=== PATIENT | male | born 1965 | race Caucasian/White ===

== ENCOUNTER 2019-02-07 17:32 | Inpatient (IN) ==
[2019-02-07] MEDS ORDERED: LABETALOL 20 MG/4 ML SYRINGE IV STA (18:24)
[2019-02-07 18:32] LABS: Basophils # 0.1 10*3/uL (0.0-0.2); Basophils % 0.9 % (0.0-0.8); Eosinophils % 0.2 % (0.00-10.9); Hematocrit 50.8 VOL% (42.0-52.0); Hemoglobin 16.7 GM/DL (14.0-18.0); Immature Granulocytes % 1.2 %; Immature Granulocytes Absolute 0.11 #; Lymphocytes # 0.9 10*3/uL (1.4-4.0); Lymphocytes % 10.2 % (21.2-54.2); Mean Corpuscular HGB Conc 32.9 GM/DL (32-36); Mean Corpuscular Volume 86.5 FL (87-102); Mean Platelet Volume 10.7 FL (9.6-12.0); Monocytes % 2.6 % (1.7-12.7); Neutrophils % 84.9 % (38.7-73.9); Platelet Count 190 T/CUMM (130-400); Red Blood Count 5.87 MC/CUMM (3.8-5.5); Red Cell Distribution Width 13.3 % (9.3-17.3); White Blood Count 9.2 T/CUMM (4-12)
[2019-02-07 18:41] LABS: INR 0.9; PT Patient Result 10.3 SECS (9.6-12.2)
[2019-02-07 18:43] LABS: Albumin 3.7 G/DL (3.4-5.0); Bilirubin,Total 1.1 MG/DL (0.2-1.0); Calcium 9.3 MG/DL (8.5-10.1); Osmolality,Calculated 294.4 MOS/KG (273-304); Total Protein 7.8 G/DL (6.4-8.3)
[2019-02-07] MEDS ORDERED: NITROGLYCERIN SL 0.4 MG TABLET SL STA (19:19)
[2019-02-07] MEDS ORDERED: ASPIRIN EC 325 MG TABLET PO STA (19:19)
[2019-02-07] MEDS ORDERED: CLOPIDOGREL 300 MG TABLET PO STA (20:46)
[2019-02-07] MEDS ORDERED: NITROGLYCERIN 2% OINT 1 INCH/GM PACK TOP ONE (20:58)
[2019-02-07] MEDS ORDERED: ENOXAPARIN 120 MG/0.8 ML SYRINGE SUBCUT ONE (20:59)
[2019-02-07] MEDS ORDERED: ENOXAPARIN 80 MG/0.8 ML SYRINGE SUBCUT SCH (21:00)
[2019-02-07] MEDS ORDERED: hydrALAZINE 20 MG/1 ML VIAL IV PRN (23:03)
[2019-02-07] MEDS ORDERED: DOCUSATE SODIUM 100 MG CAPSULE PO PRN (23:03)
[2019-02-07] MEDS ORDERED: GLUCAGON 1 MG VIAL IM PRN (23:03)
[2019-02-07] MEDS ORDERED: MORPHINE 4 MG/1 ML VIAL IV PRN (23:03)
[2019-02-07] MEDS ORDERED: ACETAMINOPHEN 325 MG TABLET PO PRN (23:03)
[2019-02-07] MEDS ORDERED: DEXTROSE 50% 25 GM/50 ML VIAL IV PRN (23:03)
[2019-02-07] MEDS ORDERED: ONDANSETRON 4 MG/2 ML VIAL IV PRN (23:03)
[2019-02-07] MEDS: INSULIN REGULAR 100 UNIT/ML SUBCUT SCH (23:53)
[2019-02-08 01:07] LABS: Basophils % 0.4 % (0.0-0.8); Eosinophils % 0.1 % (0.00-10.9); Hematocrit 45.1 VOL% (42.0-52.0); Hemoglobin 14.9 GM/DL (14.0-18.0); Immature Granulocytes % 1.5 %; Immature Granulocytes Absolute 0.15 #; Lymphocytes # 1.4 10*3/uL (1.4-4.0); Lymphocytes % 13.5 % (21.2-54.2); Mean Corpuscular Volume 86.6 FL (87-102); Monocytes % 5.8 % (1.7-12.7); Neutrophils % 78.7 % (38.7-73.9); Platelet Count 177 T/CUMM (130-400); Red Blood Count 5.21 MC/CUMM (3.8-5.5); Red Cell Distribution Width 13.2 % (9.3-17.3)
[2019-02-08 01:29] LABS: Calcium 9.5 MG/DL (8.5-10.1); Osmolality,Calculated 289.4 MOS/KG (273-304); Risk Ratio 6.5; Thyroid Stimulating Hormone 0.421 uIU/ml (0.358-3.74); VLDL CHOLESTEROL 38.6 MG/DL
[2019-02-08] MEDS ORDERED: CLOPIDOGREL 75 MG TABLET PO SCH (09:00)
[2019-02-08] MEDS: INSULIN REGULAR 100 UNIT/ML SUBCUT SCH ×4 (09:14→21:48)
[2019-02-08] MEDS ORDERED: LIDOCAINE 1% 20 ML VIAL ONE (09:39)
[2019-02-08] MEDS ORDERED: HEPARIN/NACL 0.9% 2 UNITS/ML 1,000 ML IV ONE (09:39)
[2019-02-08] MEDS: METOPROLOL SUCCINATE XL 50 MG TABLET PO SCH (09:44)
[2019-02-08] MEDS: ENOXAPARIN 150 MG/ML SYRINGE SUBCUT SCH ×2 (09:44→21:47)
[2019-02-08] MEDS: PANTOPRAZOLE 40 MG TABLET PO SCH (09:44)
[2019-02-08] MEDS: LISINOPRIL 10 MG TABLET PO SCH (09:45)
[2019-02-08] MEDS: ASPIRIN EC 81 MG TABLET PO SCH (09:45)
[2019-02-08] MEDS ORDERED: diphenhydrAMINE CAP 25 MG CAPSULE PO ONE (09:46)
[2019-02-08] MEDS ORDERED: MAGNESIUM SULF RIDER 2 GM in PREMIX 1 EACH IV PRN (09:46)
[2019-02-08] MEDS ORDERED: ASPIRIN 325 MG TABLET PO ONE (09:46)
[2019-02-08] MEDS ORDERED: DIAZEPAM 5 MG TABLET PO ONE (09:46)
[2019-02-08] MEDS ORDERED: POTASSIUM CHLORIDE RIDER 10 MEQ in PREMIX 1 EACH IV PRN (09:46)
[2019-02-08 09:48] LABS: CKMB % 8.6 %
[2019-02-08] MEDS ORDERED: DIAZEPAM 5 MG TABLET ONE (09:49)
[2019-02-08] MEDS ORDERED: diphenhydrAMINE CAP 25 MG CAPSULE ONE (09:50)
[2019-02-08 09:51] LABS: Troponin I 19.5 NG/ML (0.00-0.045)
[2019-02-08] MEDS: NITROGLYCERIN 0.2 MG/HR PATCH TRANSDERM SCH (09:55)
[2019-02-08] MEDS: ATORVASTATIN 80 MG TABLET PO SCH ×2 (09:58→21:48)
[2019-02-08] MEDS: SODIUM CHLORIDE 0.45% 1,000 ML IV SCH ×3 (10:01→21:49)
[2019-02-08] MEDS ORDERED: NITROGLYCERIN DRIP 50 MG/250 ML BOTTLE IV ONE (10:21)
[2019-02-08] MEDS ORDERED: VERAPAMIL 5 MG/2 ML VIAL ONE ×2 (10:21→10:23)
[2019-02-08] MEDS ORDERED: HYDROmorphone 2 MG/1 ML VIAL ONE (10:21)
[2019-02-08] MEDS ORDERED: MIDAZOLAM 2 MG/2 ML VIAL ONE (10:21)
[2019-02-08] MEDS ORDERED: SODIUM CHLORIDE 0.9% 1,000 ML IV SCH (11:00)
[2019-02-09] MEDS: SODIUM CHLORIDE 0.45% 1,000 ML IV SCH (01:47)
[2019-02-09 04:50] LABS: Basophils # 0.1 10*3/uL (0.0-0.2); Eosinophils # 0.2 10*3/uL (0.0-0.87); Eosinophils % 2.2 % (0.00-10.9); Hematocrit 46.4 VOL% (42.0-52.0); Hemoglobin 14.9 GM/DL (14.0-18.0); Immature Granulocytes % 0.8 %; Immature Granulocytes Absolute 0.08 #; Lymphocytes # 2.7 10*3/uL (1.4-4.0); Lymphocytes % 27.1 % (21.2-54.2); Mean Corpuscular HGB Conc 32.1 GM/DL (32-36); Mean Platelet Volume 11.9 FL (9.6-12.0); Monocytes % 7.4 % (1.7-12.7); Neutrophils % 61.5 % (38.7-73.9); Platelet Count 150 T/CUMM (130-400); Red Blood Count 5.27 MC/CUMM (3.8-5.5); Red Cell Distribution Width 13.6 % (9.3-17.3)
[2019-02-09 05:01] LABS: Calcium 8.1 MG/DL (8.5-10.1); Osmolality,Calculated 285.3 MOS/KG (273-304)
[2019-02-09] MEDS: INSULIN REGULAR 100 UNIT/ML SUBCUT SCH ×4 (07:49→22:28)
[2019-02-09] MEDS: LISINOPRIL 10 MG TABLET PO SCH (08:27)
[2019-02-09] MEDS: METOPROLOL SUCCINATE XL 50 MG TABLET PO SCH (08:28)
[2019-02-09] MEDS: ASPIRIN EC 81 MG TABLET PO SCH (08:28)
[2019-02-09] MEDS: NITROGLYCERIN 0.2 MG/HR PATCH TRANSDERM SCH (08:29)
[2019-02-09] MEDS: ENOXAPARIN 150 MG/ML SYRINGE SUBCUT SCH ×4 (08:31→22:29)
[2019-02-09] MEDS: PANTOPRAZOLE 40 MG TABLET PO SCH (08:54)
[2019-02-09 10:45] LABS: Apearance,Urine CLEAR (Clear); Bilirubin,Urine Negative (Negative); Blood, Urine Negative (Negative); Glucose,Urine (UA) >=500 mg/dL (Negative); Ketones,Urine Negative (Negative); Nitrite,Urine Negative (Negative); Protein,Urine Negative; RBC,Urine 1 /HPF (0-4); Squamous Epithelial Cell,Urine Occasional /HPF (0-10); Urine Color Straw (Yellow); Urine Specific Gravity 1.007 (1.001-1.035); Urine Urobilinogen < 2.0 EU/DL (0.2-1.0); WBC,Urine 1 /HPF (0-6)
[2019-02-09] MEDS ORDERED: KETOROLAC 30 MG/1 ML VIAL IV ONE (12:47)
[2019-02-09] MEDS: ATORVASTATIN 80 MG TABLET PO SCH (20:31)
[2019-02-10 05:11] LABS: Calcium 8.4 MG/DL (8.5-10.1); Osmolality,Calculated 286.1 MOS/KG (273-304)
[2019-02-10] MEDS: metFORMIN 500 MG TABLET PO SCH ×3 (08:00→16:20)
[2019-02-10] MEDS: INSULIN REGULAR 100 UNIT/ML SUBCUT SCH ×4 (08:06→21:38)
[2019-02-10] MEDS: ENOXAPARIN 150 MG/ML SYRINGE SUBCUT SCH ×2 (09:23→21:38)
[2019-02-10] MEDS: ASPIRIN EC 81 MG TABLET PO SCH (09:24)
[2019-02-10] MEDS: PANTOPRAZOLE 40 MG TABLET PO SCH (09:24)
[2019-02-10] MEDS: NITROGLYCERIN 0.2 MG/HR PATCH TRANSDERM SCH (09:24)
[2019-02-10] MEDS: METOPROLOL SUCCINATE XL 50 MG TABLET PO SCH (09:24)
[2019-02-10] MEDS: LISINOPRIL 10 MG TABLET PO SCH (09:24)
[2019-02-10] MEDS: ATORVASTATIN 80 MG TABLET PO SCH (21:38)
[2019-02-11] MEDS: INSULIN REGULAR 100 UNIT/ML SUBCUT SCH ×4 (08:39→20:42)
[2019-02-11] MEDS ORDERED: CLORAZEPATE 3.75 MG TABLET PO PRN (08:46)
[2019-02-11] MEDS: ENOXAPARIN 150 MG/ML SYRINGE SUBCUT SCH (09:12)
[2019-02-11] MEDS: CHLORHEXIDINE 0.12% ORAL RINSE 60 ML BOTTLE SWISH/SPIT SCH ×2 (09:13→20:40)
[2019-02-11] MEDS: NITROGLYCERIN 0.2 MG/HR PATCH TRANSDERM SCH (09:14)
[2019-02-11] MEDS: METOPROLOL SUCCINATE XL 50 MG TABLET PO SCH (09:17)
[2019-02-11] MEDS: PANTOPRAZOLE 40 MG TABLET PO SCH (09:17)
[2019-02-11] MEDS: LISINOPRIL 20 MG TABLET PO SCH (09:17)
[2019-02-11] MEDS: metFORMIN 500 MG TABLET PO SCH ×2 (09:17→16:53)
[2019-02-11] MEDS: ASPIRIN EC 81 MG TABLET PO SCH (09:17)
[2019-02-11] MEDS: CHLORHEXIDINE 4% SOLN 118 ML BOTTLE TOP SCH ×3 (09:31→20:41)
[2019-02-11] MEDS: ASCORBIC ACID 500 MG TABLET PO SCH (20:40)
[2019-02-11] MEDS: carvediloL 12.5 MG TABLET PO SCH (20:40)
[2019-02-11] MEDS: ATORVASTATIN 80 MG TABLET PO SCH (20:40)
[2019-02-12 04:20] LABS: Basophils # 0.1 10*3/uL (0.0-0.2); Basophils % 0.7 % (0.0-0.8); Eosinophils # 0.1 10*3/uL (0.0-0.87); Eosinophils % 1.5 % (0.00-10.9); Hematocrit 44.6 VOL% (42.0-52.0); Hemoglobin 14.5 GM/DL (14.0-18.0); Immature Granulocytes % 0.8 %; Immature Granulocytes Absolute 0.08 #; Lymphocytes # 1.8 10*3/uL (1.4-4.0); Lymphocytes % 18.2 % (21.2-54.2); Mean Corpuscular HGB Conc 32.5 GM/DL (32-36); Mean Corpuscular Volume 86.1 FL (87-102); Mean Platelet Volume 11.5 FL (9.6-12.0); Monocytes % 9.4 % (1.7-12.7); Neutrophils % 69.4 % (38.7-73.9); Platelet Count 164 T/CUMM (130-400); Red Blood Count 5.18 MC/CUMM (3.8-5.5); Red Cell Distribution Width 13.4 % (9.3-17.3); White Blood Count 9.7 T/CUMM (4-12)
[2019-02-12] MEDS ORDERED: VANCOMYCIN 1,000 MG VIAL ONE (05:10)
[2019-02-12] MEDS ORDERED: TISSUE ADHESIVE 1 EACH APPLICATOR TOP ONE (05:10)
[2019-02-12] MEDS ORDERED: PAPAVERINE 60 MG/2 ML VIAL ONE (05:10)
[2019-02-12 05:17] LABS: Osmolality,Calculated 279.5 MOS/KG (273-304)
[2019-02-12] MEDS: SODIUM CHLORIDE 0.9% 1,000 ML IV SCH ×2 (05:33→11:00)
[2019-02-12] MEDS ORDERED: DEXMEDETOMIDINE 200 MCG/2 ML VIAL IV ONE (06:20)
[2019-02-12] MEDS ORDERED: FAMOTIDINE 20 MG/2 ML VIAL IV ONE (06:21)
[2019-02-12] MEDS ORDERED: PHENYLEPHRINE DRIP 40 MG/250 ML PREMIX IV ONE (07:46)
[2019-02-12] MEDS ORDERED: NITROPRUSSIDE 50 MG/2 ML VIAL ONE ×2 (07:46→10:29)
[2019-02-12] MEDS ORDERED: CEFUROXIME 1,500 MG VIAL ONE (07:46)
[2019-02-12] MEDS ORDERED: SODIUM BICARBONATE 50 MEQ/50 ML VIAL IV ONE ×2 (07:47→10:32)
[2019-02-12] MEDS ORDERED: CALCIUM CHLORIDE 1,000 MG/10 ML SYRINGE IV ONE (07:47)
[2019-02-12] MEDS ORDERED: POTASSIUM CHLORIDE RIDER 100 ML IV ONE (07:47)
[2019-02-12] MEDS ORDERED: ALBUMIN 5% 12.5 GM/250 ML VIAL IV ONE ×2 (07:48→11:49)
[2019-02-12 07:58] LABS: ABG Base Excess -2.9 MMOL/L (-2.5-2.5); ABG Oxygen Saturation 99.3 % (95-100); ABG PCO2 32.5 MM HG (35-48); ABG PH 7.412 (7.35-7.45); ABG TCO2 17.7 MMOL/L (23-27); Glucose Heart Surgery 147 MG/DL (74-106); Hematocrit Heart Surgery 43.9 PERCENT (42-52); Hemoglobin Heart Surgery 14.3 G/DL (14.0-18.0); Ionized Calcium Arterial 1.11 MMOL/L (1.21-1.46); PCO2 Patient Temp Arterial 32.5 MMHG; PH Patient Temp Arterial 7.412; Patient Temperature 37 CELCIUS; Potassium Heart/CVR 3.6 MMOL/L (3.5-5.1); Sodium Heart/CVR 136 MMOL/L (135-145)
[2019-02-12] MEDS ORDERED: CEFUROXIME INJ 1,500 MG in SYRINGE 1 EACH IV ONE (08:02)
[2019-02-12 08:08] LABS: Apearance,Urine CLEAR (Clear); Bilirubin,Urine Negative (Negative); Blood, Urine Moderate mg/dL (Negative); Glucose,Urine (UA) >=500 mg/dL (Negative); Ketones,Urine 20 mg/dL (Negative); Mucus,Urine Occasional /LPF (Occasional); Nitrite,Urine Negative (Negative); Protein,Urine Negative; RBC,Urine 59 /HPF (0-4); Urine Color Yellow (Yellow); Urine Specific Gravity 1.024 (1.001-1.035); Urine Urobilinogen < 2.0 EU/DL (0.2-1.0); WBC,Urine 1 /HPF (0-6)
[2019-02-12] MEDS ORDERED: VANCOMYCIN 500 MG VIAL ONE (08:16)
[2019-02-12 09:12] LABS: Hemoglobin Heart Surgery 11.3 G/DL (14.0-18.0); PCO2 Patient Temp Venous 34.1 MM HG; PH Patient Temp Venous 7.412; Potassium Heart/CVR 4.6 MMOL/L (3.5-5.1); VBG Base Excess -2.9 MEQ/L (0-4); VBG HCO3 21.4 MEQ/L (24-28); VBG Oxygen Saturation 80.3 %; VBG PCO2 35.6 MMHG (41-51); VBG PH 7.397
[2019-02-12 09:37] LABS: Hematocrit Heart Surgery 34.8 PERCENT (42-52); Hemoglobin Heart Surgery 11.3 G/DL (14.0-18.0); PCO2 Patient Temp Venous 37.3 MM HG; PH Patient Temp Venous 7.371; PO2 Patient Temp Venous 45.2 MM HG; Potassium Heart/CVR 4.1 MMOL/L (3.5-5.1); VBG Base Excess -3.2 MEQ/L (0-4); VBG HCO3 21.5 MEQ/L (24-28); VBG Oxygen Saturation 80.6 %; VBG PCO2 37.3 MMHG (41-51); VBG PH 7.371; VBG PO2 45.2 MMHG (17-40)
[2019-02-12] MEDS ORDERED: THROMBIN TOPICAL (RECOMBINANT) 5,000 UNIT VIAL TOP ONE (10:19)
[2019-02-12] MEDS ORDERED: MANNITOL 100 GM/500 ML BAG IV ONE (10:32)
[2019-02-12] MEDS ORDERED: ALBUMIN 25% 25 GM/100 ML VIAL IV ONE (10:32)
[2019-02-12] MEDS ORDERED: DEXTROSE 5% KCL 20 MEQ 20 MEQ/1,000 ML BAG IV ONE (10:32)
[2019-02-12] MEDS ORDERED: PROTAMINE SULFATE 250 MG/25 ML VIAL IV ONE (10:32)
[2019-02-12] MEDS ORDERED: MAGNESIUM SULFATE 5 GM/10 ML VIAL IV ONE (10:32)
[2019-02-12] MEDS ORDERED: LIDOCAINE 2% 5 ML VIAL ONE ×2 (10:32→11:47)
[2019-02-12] MEDS ORDERED: FUROSEMIDE 20 MG/2 ML VIAL ONE (10:33)
[2019-02-12] MEDS ORDERED: methylPREDNISolone SOD SUC 1,000 MG/8 ML VIAL ONE (10:33)
[2019-02-12] MEDS ORDERED: PROTAMINE SULFATE 50 MG/5 ML VIAL IV ONE (10:33)
[2019-02-12] MEDS ORDERED: HEPARIN 10,000 UNIT/10 ML VIAL ONE (10:33)
[2019-02-12 10:41] LABS: ABG Base Excess -3.6 MMOL/L (-2.5-2.5); ABG HCO3 20.1 MMOL/L (20-26); ABG PCO2 32.4 MM HG (35-48); ABG PH 7.411 (7.35-7.45); ABG PO2 249.8 MM HG (80-95); ABG TCO2 21.1 MMOL/L (23-27); Glucose Heart Surgery 222 MG/DL (74-106); Hemoglobin Heart Surgery 12.5 G/DL (14.0-18.0); PCO2 Patient Temp Arterial 32.4 MMHG; PH Patient Temp Arterial 7.411; PO2 Patient Temp Arterial 249.8 MM HG; Patient Temperature 37 CELCIUS; Potassium Heart/CVR 4.3 MMOL/L (3.5-5.1); Sodium Heart/CVR 130 MMOL/L (135-145)
[2019-02-12] MEDS: NITROGLYCERIN 0.2 MG/HR PATCH TRANSDERM SCH (11:00)
[2019-02-12] MEDS: ASPIRIN EC 81 MG TABLET PO SCH (11:00)
[2019-02-12] MEDS: metFORMIN 500 MG TABLET PO SCH (11:00)
[2019-02-12] MEDS: carvediloL 12.5 MG TABLET PO SCH (11:00)
[2019-02-12] MEDS: CHLORHEXIDINE 0.12% ORAL RINSE 60 ML BOTTLE SWISH/SPIT SCH ×2 (11:00→20:02)
[2019-02-12] MEDS: LISINOPRIL 20 MG TABLET PO SCH (11:00)
[2019-02-12] MEDS: INSULIN REGULAR 100 UNIT/ML SUBCUT SCH ×2 (11:00→13:26)
[2019-02-12] MEDS: ASCORBIC ACID 500 MG TABLET PO SCH (11:01)
[2019-02-12] MEDS: PANTOPRAZOLE 40 MG TABLET PO SCH (11:01)
[2019-02-12] MEDS: ALBUTEROL/IPRATROPIUM 3 ML NEB RESP TX SCH ×4 (11:40→22:59)
[2019-02-12] MEDS ORDERED: ePHEDrine 50 MG/ML AMP ONE (11:45)
[2019-02-12] MEDS ORDERED: SUFentanil 250 MCG/5 ML AMP ONE (11:47)
[2019-02-12] MEDS ORDERED: SEVOFLURANE 1 UNIT/15 MINUTE INH ONE (11:47)
[2019-02-12] MEDS ORDERED: CALCIUM CHLORIDE 1,000 MG/10 ML VIAL IV ONE (11:47)
[2019-02-12] MEDS ORDERED: HEPARIN/NACL 0.9% 2 UNITS/ML 500 ML IV ONE (11:47)
[2019-02-12] MEDS ORDERED: PHENYLEPHRINE 10 MG/1 ML VIAL IV ONE (11:48)
[2019-02-12] MEDS ORDERED: METOPROLOL TARTRATE 5 MG/5 ML VIAL IV ONE (11:48)
[2019-02-12] MEDS ORDERED: MIDAZOLAM 10 MG/2 ML VIAL ONE (11:48)
[2019-02-12] MEDS ORDERED: NITROGLYCERIN DRIP 50 MG/250 ML BOTTLE IV ONE (11:48)
[2019-02-12] MEDS ORDERED: ETOMIDATE 40 MG/20 ML VIAL IV ONE (11:48)
[2019-02-12] MEDS ORDERED: VECURONIUM 10 MG VIAL IV ONE (11:48)
[2019-02-12] MEDS ORDERED: SODIUM CHLORIDE 0.9% 1,000 ML IV ONE (11:49)
[2019-02-12] MEDS ORDERED: AMINOCAPROIC ACID 5,000 MG/20 ML VIAL ONE (11:49)
[2019-02-12] MEDS ORDERED: SODIUM CHLORIDE 0.9% 250 ML IV ONE (11:49)
[2019-02-12] MEDS ORDERED: LACTATED RINGERS 1,000 ML IV ONE (11:49)
[2019-02-12] MEDS ORDERED: ACETAMINOPHEN 650 MG SUPP RECTAL PRN (12:07)
[2019-02-12] MEDS ORDERED: MAGNESIUM SULF RIDER 2 GM in PREMIX 1 EACH IV PRN (12:07)
[2019-02-12] MEDS ORDERED: CALCIUM CHLORIDE 1,000 MG/10 ML SYRINGE IV PRN (12:07)
[2019-02-12] MEDS ORDERED: MIDAZOLAM 2 MG/2 ML VIAL IV PRN (12:07)
[2019-02-12] MEDS ORDERED: DEXTROSE 10% 250 ML BAG IV PRN ×2 (12:07)
[2019-02-12] MEDS ORDERED: INSULIN REGULAR 100 UNIT/ML IV PRN (12:07)
[2019-02-12] MEDS ORDERED: ONDANSETRON 4 MG/2 ML VIAL IV PRN (12:07)
[2019-02-12] MEDS ORDERED: CHLORHEXIDINE 4% SOLN 118 ML BOTTLE TOP PRN (12:07)
[2019-02-12 12:12] LABS: ABG Base Excess -3.5 MMOL/L (-2.5-2.5); ABG HCO3 19.9 MMOL/L (20-26); ABG Oxygen Saturation 95.2 % (95-100); ABG PCO2 30.5 MM HG (35-48); ABG PH 7.432 (7.35-7.45); ABG PO2 76.1 MM HG (80-95); ABG TCO2 20.8 MMOL/L (23-27); Glucose Heart Surgery 211 MG/DL (74-106); Hemoglobin Heart Surgery 11.5 G/DL (14.0-18.0); Potassium Heart/CVR 3.8 MMOL/L (3.5-5.1)
[2019-02-12 12:15] LABS: Basophils % 0.4 % (0.0-0.8); Eosinophils # 0.1 10*3/uL (0.0-0.87); Eosinophils % 0.5 % (0.00-10.9); Hematocrit 32.3 VOL% (42.0-52.0); Hemoglobin 10.8 GM/DL (14.0-18.0); Immature Granulocytes % 1.1 %; Immature Granulocytes Absolute 0.12 #; Lymphocytes # 0.9 10*3/uL (1.4-4.0); Lymphocytes % 8.5 % (21.2-54.2); Mean Corpuscular HGB Conc 33.4 GM/DL (32-36); Mean Corpuscular Volume 86.6 FL (87-102); Mean Platelet Volume 11.4 FL (9.6-12.0); Monocytes % 5.6 % (1.7-12.7); Neutrophils % 83.9 % (38.7-73.9); Platelet Count 133 T/CUMM (130-400); Red Blood Count 3.73 MC/CUMM (3.8-5.5); Red Cell Distribution Width 13.4 % (9.3-17.3); White Blood Count 10.7 T/CUMM (4-12)
[2019-02-12 12:26] LABS: INR 1.1; PT Patient Result 11.4 SECS (9.6-12.2); Partial Thromboplastin Time 29.2 SECS (20.8-36.0)
[2019-02-12 12:29] LABS: Calcium 8.2 MG/DL (8.5-10.1); Osmolality,Calculated 283.5 MOS/KG (273-304)
[2019-02-12] MEDS: ALBUMIN 5% 12.5 GM in PREMIX 1 EACH IV PRN ×2 (12:34→15:30)
[2019-02-12] MEDS: SODIUM CHLORIDE 0.45% 1,000 ML IV SCH ×2 (12:34)
[2019-02-12] MEDS: POTASSIUM CHLORIDE RIDER 20 MEQ in PREMIX 1 EACH IV PRN ×2 (12:37→14:08)
[2019-02-12] MEDS: INSULIN REGULAR DRIP 100 ML IV SCH (12:45)
[2019-02-12] MEDS: POTASSIUM CHLORIDE RIDER 10 MEQ in PREMIX 1 EACH IV PRN (14:09)
[2019-02-12] MEDS: SODIUM CHLORIDE 0.9% 250 ML IV PRN ×4 (14:15→19:33)
[2019-02-12] MEDS ORDERED: PHENYLEPHRINE DRIP 40 MG/250 ML PREMIX IV PRN (14:36)
[2019-02-12] MEDS ORDERED: NITROPRUSSIDE 100 MG in DEXTROSE 5% 246 ML IV PRN (14:37)
[2019-02-12] MEDS: DEXMEDETOMIDINE 200 MCG in SODIUM CHLORIDE 0.9% 48 ML IV PRN ×3 (15:00→21:53)
[2019-02-12] MEDS: MORPHINE 10 MG/1 ML VIAL IV PRN ×2 (17:13→19:08)
[2019-02-12] MEDS: CEFUROXIME INJ 1,500 MG in SYRINGE 1 EACH IV SCH (19:08)
[2019-02-13] MEDS: SODIUM CHLORIDE 0.45% 1,000 ML IV SCH ×4 (00:09→09:52)
[2019-02-13] MEDS: DEXMEDETOMIDINE 200 MCG in SODIUM CHLORIDE 0.9% 48 ML IV PRN ×2 (01:57→06:12)
[2019-02-13] MEDS: ALBUTEROL/IPRATROPIUM 3 ML NEB RESP TX SCH ×5 (03:30→19:37)
[2019-02-13 04:19] LABS: Basophils % 0.2 % (0.0-0.8); Hematocrit 32.4 VOL% (42.0-52.0); Hemoglobin 10.8 GM/DL (14.0-18.0); Immature Granulocytes % 0.8 %; Lymphocytes % 7.9 % (21.2-54.2); Mean Corpuscular HGB Conc 33.3 GM/DL (32-36); Mean Corpuscular Volume 86.2 FL (87-102); Monocytes % 5.6 % (1.7-12.7); Neutrophils % 85.5 % (38.7-73.9); Platelet Count 141 T/CUMM (130-400); Red Blood Count 3.76 MC/CUMM (3.8-5.5); Red Cell Distribution Width 13.9 % (9.3-17.3)
[2019-02-13 04:55] LABS: Osmolality,Calculated 285.1 MOS/KG (273-304)
[2019-02-13] MEDS: INSULIN REGULAR DRIP 100 ML IV SCH (05:17)
[2019-02-13] MEDS: MORPHINE 4 MG/1 ML VIAL IV PRN (08:12)
[2019-02-13] MEDS: CEFUROXIME INJ 1,500 MG in SYRINGE 1 EACH IV SCH ×2 (08:13→20:58)
[2019-02-13 08:25] LABS: ABG Base Excess -5.4 MMOL/L (-2.5-2.5); ABG HCO3 17.7 MMOL/L (20-26); ABG Oxygen Saturation 95.3 % (95-100); ABG PCO2 27.4 MM HG (35-48); ABG PH 7.427 (7.35-7.45); ABG PO2 78.9 MM HG (80-95); ABG TCO2 18.5 MMOL/L (23-27); Glucose Heart Surgery 130 MG/DL (74-106); Hemoglobin Heart Surgery 11.6 G/DL (14.0-18.0); Potassium Heart/CVR 3.7 MMOL/L (3.5-5.1)
[2019-02-13] MEDS ORDERED: KETOROLAC 30 MG/1 ML VIAL IV ONE (08:54)
[2019-02-13] MEDS ORDERED: FUROSEMIDE 20 MG TABLET ONE (08:59)
[2019-02-13] MEDS: CHLORHEXIDINE 0.12% ORAL RINSE 60 ML BOTTLE SWISH/SPIT SCH ×2 (09:08→20:59)
[2019-02-13] MEDS: ASPIRIN EC 325 MG TABLET PO SCH (09:08)
[2019-02-13] MEDS: PANTOPRAZOLE 40 MG VIAL IV SCH (09:09)
[2019-02-13] MEDS: FUROSEMIDE 40 MG TABLET PO SCH (09:15)
[2019-02-13] MEDS: CLOPIDOGREL 75 MG TABLET PO SCH (09:49)
[2019-02-13] MEDS: METOPROLOL TARTRATE 25 MG TABLET PO SCH ×2 (09:49→20:59)
[2019-02-13] MEDS ORDERED: FUROSEMIDE 40 MG/4 ML VIAL IV ONE (09:50)
[2019-02-13] MEDS ORDERED: DEXTROSE 50% 25 GM/50 ML VIAL IV PRN (10:07)
[2019-02-13] MEDS ORDERED: GLUCAGON 1 MG VIAL IM PRN (10:07)
[2019-02-13] MEDS: INSULIN REGULAR 100 UNIT/ML SUBCUT SCH ×3 (11:18→20:59)
[2019-02-13] MEDS ORDERED: METOPROLOL TARTRATE 5 MG/5 ML VIAL IV ONE ×3 (13:39→20:07)
[2019-02-13] MEDS: MORPHINE 10 MG/1 ML VIAL IV PRN ×2 (13:43→17:49)
[2019-02-13] MEDS: SPIRONOLACTONE 25 MG TABLET PO SCH ×2 (15:28→21:10)
[2019-02-13] MEDS: ATORVASTATIN 40 MG TABLET PO SCH (20:59)
[2019-02-14] MEDS: ALBUTEROL/IPRATROPIUM 3 ML NEB RESP TX SCH ×7 (00:08→23:17)
[2019-02-14] MEDS: INSULIN REGULAR 100 UNIT/ML SUBCUT SCH ×6 (00:10→20:29)
[2019-02-14] MEDS ORDERED: AMIODARONE INJ 150 MG in DEXTROSE 5% 100 ML IV ONE (00:12)
[2019-02-14] MEDS ORDERED: AMIODARONE 150 MG/3 ML VIAL ONE (00:15)
[2019-02-14] MEDS ORDERED: AMIODARONE INJ 450 MG in DEXTROSE 5% 241 ML IV SCH (00:30)
[2019-02-14 02:26] LABS: Basophils # 0.1 10*3/uL (0.0-0.2); Basophils % 0.2 % (0.0-0.8); Hemoglobin 11.3 GM/DL (14.0-18.0); Immature Granulocytes % 1.1 %; Immature Granulocytes Absolute 0.28 #; Lymphocytes # 1.4 10*3/uL (1.4-4.0); Lymphocytes % 5.5 % (21.2-54.2); Mean Corpuscular HGB Conc 32.3 GM/DL (32-36); Mean Corpuscular Volume 88.2 FL (87-102); Mean Platelet Volume 11.8 FL (9.6-12.0); Monocytes % 9.7 % (1.7-12.7); Neutrophils % 83.5 % (38.7-73.9); Platelet Count 184 T/CUMM (130-400); Red Blood Count 3.97 MC/CUMM (3.8-5.5); White Blood Count 24.9 T/CUMM (4-12)
[2019-02-14 02:44] LABS: Calcium 8.6 MG/DL (8.5-10.1); Osmolality,Calculated 289.4 MOS/KG (273-304)
[2019-02-14] MEDS: MORPHINE 4 MG/1 ML VIAL IV PRN ×3 (02:54→20:02)
[2019-02-14 03:05] LABS: Anisocytosis 1+; Eosinophils 1 % (0-10); Lymphocytes 6 % (20-55); Platelet Estimate Adequate; Segmented Neutrophils 86 % (50-85); Total Cells Counted 100
[2019-02-14] MEDS: ACETAMINOPHEN 325 MG TABLET PO PRN ×2 (03:34→13:46)
[2019-02-14] MEDS: CLOPIDOGREL 75 MG TABLET PO SCH (08:18)
[2019-02-14] MEDS: SPIRONOLACTONE 25 MG TABLET PO SCH ×2 (08:18→20:30)
[2019-02-14] MEDS: FUROSEMIDE 40 MG TABLET PO SCH (08:19)
[2019-02-14] MEDS: METOPROLOL TARTRATE 25 MG TABLET PO SCH (08:19)
[2019-02-14] MEDS: ASPIRIN EC 325 MG TABLET PO SCH (08:19)
[2019-02-14] MEDS: PANTOPRAZOLE 40 MG VIAL IV SCH (08:24)
[2019-02-14] MEDS: CHLORHEXIDINE 0.12% ORAL RINSE 60 ML BOTTLE SWISH/SPIT SCH ×2 (08:24→20:30)
[2019-02-14] MEDS: AMIODARONE INJ 450 MG in DEXTROSE 5% 241 ML IV SCH (10:35)
[2019-02-14] MEDS ORDERED: FUROSEMIDE 40 MG/4 ML VIAL IV ONE (11:03)
[2019-02-14] MEDS: ATORVASTATIN 40 MG TABLET PO SCH (20:30)
[2019-02-14] MEDS: AMIODARONE 200 MG TABLET PO SCH (20:30)
[2019-02-14] MEDS ORDERED: METOPROLOL TARTRATE 25 MG TABLET PO SCH (21:00)
[2019-02-15] MEDS: INSULIN REGULAR 100 UNIT/ML SUBCUT SCH ×6 (00:07→20:32)
[2019-02-15] MEDS ORDERED: METOPROLOL TARTRATE 5 MG/5 ML VIAL IV ONE ×2 (00:44→16:29)
[2019-02-15] MEDS: dilTIAZem Drip 125 MG/125 ML PREMIX IV SCH ×2 (01:43→09:35)
[2019-02-15] MEDS: ALBUTEROL/IPRATROPIUM 3 ML NEB RESP TX SCH ×5 (02:46→19:51)
[2019-02-15] MEDS: AMIODARONE INJ 450 MG in DEXTROSE 5% 241 ML IV SCH ×2 (02:58→17:01)
[2019-02-15 04:36] LABS: Basophils # 0.1 10*3/uL (0.0-0.2); Basophils % 0.3 % (0.0-0.8); Eosinophils % 0.1 % (0.00-10.9); Hemoglobin 11.2 GM/DL (14.0-18.0); Immature Granulocytes Absolute 0.17 #; Lymphocytes # 1.6 10*3/uL (1.4-4.0); Lymphocytes % 9.3 % (21.2-54.2); Mean Corpuscular Volume 89.3 FL (87-102); Mean Platelet Volume 11.4 FL (9.6-12.0); Monocytes % 11.1 % (1.7-12.7); Neutrophils % 78.2 % (38.7-73.9); Platelet Count 177 T/CUMM (130-400); Red Blood Count 3.92 MC/CUMM (3.8-5.5); White Blood Count 17.3 T/CUMM (4-12)
[2019-02-15 04:57] LABS: Calcium 8.6 MG/DL (8.5-10.1); Osmolality,Calculated 289.1 MOS/KG (273-304)
[2019-02-15] MEDS: INSULIN GLARGINE 100 UNIT/ML SUBCUT SCH ×2 (08:05→09:00)
[2019-02-15] MEDS: CLOPIDOGREL 75 MG TABLET PO SCH (08:05)
[2019-02-15] MEDS: FUROSEMIDE 40 MG TABLET PO SCH (08:10)
[2019-02-15] MEDS: PANTOPRAZOLE 40 MG TABLET PO SCH (08:10)
[2019-02-15] MEDS: carvediloL 6.25 MG TABLET PO SCH ×2 (08:10→20:25)
[2019-02-15] MEDS: SPIRONOLACTONE 25 MG TABLET PO SCH ×2 (08:10→20:25)
[2019-02-15] MEDS: ASPIRIN EC 325 MG TABLET PO SCH (08:10)
[2019-02-15] MEDS: AMIODARONE 200 MG TABLET PO SCH ×2 (08:10→20:25)
[2019-02-15] MEDS: CHLORHEXIDINE 0.12% ORAL RINSE 60 ML BOTTLE SWISH/SPIT SCH ×2 (08:30→20:29)
[2019-02-15] MEDS ORDERED: POTASSIUM CHLORIDE 20 MEQ TABLET PO ONE (11:07)
[2019-02-15] MEDS: ASCORBIC ACID 500 MG TABLET PO SCH ×2 (13:07→20:32)
[2019-02-15] MEDS: POTASSIUM CHLORIDE 20 MEQ TABLET PO SCH ×2 (13:07→20:25)
[2019-02-15] MEDS: dilTIAZem Drip 125 MG/125 ML PREMIX IV PRN (16:59)
[2019-02-15] MEDS: ATORVASTATIN 40 MG TABLET PO SCH (20:32)
[2019-02-16] MEDS: INSULIN REGULAR 100 UNIT/ML SUBCUT SCH ×6 (00:14→22:00)
[2019-02-16] MEDS: ALBUTEROL/IPRATROPIUM 3 ML NEB RESP TX SCH ×6 (00:36→21:51)
[2019-02-16 05:20] LABS: Calcium 8.5 MG/DL (8.5-10.1); Osmolality,Calculated 285.4 MOS/KG (273-304)
[2019-02-16] MEDS: dilTIAZem Drip 125 MG/125 ML PREMIX IV PRN (08:52)
[2019-02-16] MEDS: SPIRONOLACTONE 25 MG TABLET PO SCH (09:04)
[2019-02-16] MEDS: PANTOPRAZOLE 40 MG TABLET PO SCH (09:04)
[2019-02-16] MEDS: AMIODARONE 200 MG TABLET PO SCH ×2 (09:04→22:00)
[2019-02-16] MEDS: FUROSEMIDE 40 MG TABLET PO SCH (09:04)
[2019-02-16] MEDS: ASCORBIC ACID 500 MG TABLET PO SCH ×2 (09:05→21:59)
[2019-02-16] MEDS: POTASSIUM CHLORIDE 20 MEQ TABLET PO SCH ×2 (09:05→21:59)
[2019-02-16] MEDS: INSULIN GLARGINE 100 UNIT/ML SUBCUT SCH (09:05)
[2019-02-16] MEDS: CLOPIDOGREL 75 MG TABLET PO SCH (09:05)
[2019-02-16] MEDS: carvediloL 6.25 MG TABLET PO SCH ×2 (09:05→22:00)
[2019-02-16] MEDS: CHLORHEXIDINE 0.12% ORAL RINSE 60 ML BOTTLE SWISH/SPIT SCH ×2 (09:06→22:03)
[2019-02-16] MEDS: ASPIRIN EC 325 MG TABLET PO SCH (09:15)
[2019-02-16] MEDS ORDERED: POTASSIUM CHLORIDE 20 MEQ TABLET PO ONE (09:56)
[2019-02-16] MEDS: ATORVASTATIN 40 MG TABLET PO SCH (22:00)
[2019-02-17] MEDS: ALBUTEROL/IPRATROPIUM 3 ML NEB RESP TX SCH ×6 (00:44→19:55)
[2019-02-17 05:23] LABS: Calcium 8.1 MG/DL (8.5-10.1); Osmolality,Calculated 288.3 MOS/KG (273-304)
[2019-02-17] MEDS: INSULIN REGULAR 100 UNIT/ML SUBCUT SCH ×6 (06:55→22:49)
[2019-02-17] MEDS ORDERED: SPIRONOLACTONE 25 MG TABLET PO SCH (09:00)
[2019-02-17] MEDS: POTASSIUM CHLORIDE RIDER 10 MEQ in PREMIX 1 EACH IV PRN (09:10)
[2019-02-17] MEDS: carvediloL 6.25 MG TABLET PO SCH (09:10)
[2019-02-17] MEDS: INSULIN GLARGINE 100 UNIT/ML SUBCUT SCH (09:10)
[2019-02-17] MEDS: ASCORBIC ACID 500 MG TABLET PO SCH ×2 (09:11→22:49)
[2019-02-17] MEDS: POTASSIUM CHLORIDE 20 MEQ TABLET PO SCH ×3 (09:11→22:51)
[2019-02-17] MEDS: CHLORHEXIDINE 0.12% ORAL RINSE 60 ML BOTTLE SWISH/SPIT SCH ×2 (09:11→22:50)
[2019-02-17] MEDS: FUROSEMIDE 40 MG TABLET PO SCH (09:11)
[2019-02-17] MEDS: AMIODARONE 200 MG TABLET PO SCH ×2 (09:11→22:50)
[2019-02-17] MEDS: PANTOPRAZOLE 40 MG TABLET PO SCH (09:11)
[2019-02-17] MEDS: ASPIRIN EC 325 MG TABLET PO SCH (09:11)
[2019-02-17] MEDS: CLOPIDOGREL 75 MG TABLET PO SCH (09:11)
[2019-02-17] MEDS ORDERED: POTASSIUM CHLORIDE 20 MEQ TABLET PO ONE (09:34)
[2019-02-17] MEDS: SPIRONOLACTONE 50 MG TABLET PO SCH (10:57)
[2019-02-17] MEDS: carvediloL 12.5 MG TABLET PO SCH ×2 (10:57→22:50)
[2019-02-17] MEDS: ATORVASTATIN 40 MG TABLET PO SCH (22:49)
[2019-02-18] MEDS: ALBUTEROL/IPRATROPIUM 3 ML NEB RESP TX SCH ×6 (00:09→20:22)
[2019-02-18] MEDS: INSULIN REGULAR 100 UNIT/ML SUBCUT SCH ×6 (00:51→21:55)
[2019-02-18 04:56] LABS: Basophils # 0.1 10*3/uL (0.0-0.2); Basophils % 0.5 % (0.0-0.8); Eosinophils # 0.2 10*3/uL (0.0-0.87); Eosinophils % 1.7 % (0.00-10.9); Hematocrit 33.2 VOL% (42.0-52.0); Hemoglobin 10.9 GM/DL (14.0-18.0); Immature Granulocytes % 2.8 %; Immature Granulocytes Absolute 0.37 #; Lymphocytes # 2.1 10*3/uL (1.4-4.0); Mean Corpuscular HGB Conc 32.8 GM/DL (32-36); Mean Corpuscular Volume 88.1 FL (87-102); Mean Platelet Volume 11.3 FL (9.6-12.0); Monocytes % 6.8 % (1.7-12.7); Neutrophils % 72.2 % (38.7-73.9); Platelet Count 233 T/CUMM (130-400); Red Blood Count 3.77 MC/CUMM (3.8-5.5); Red Cell Distribution Width 13.7 % (9.3-17.3); White Blood Count 13.3 T/CUMM (4-12)
[2019-02-18 05:15] LABS: Calcium 7.9 MG/DL (8.5-10.1); Osmolality,Calculated 285.4 MOS/KG (273-304)
[2019-02-18] MEDS: ASPIRIN EC 325 MG TABLET PO SCH (10:29)
[2019-02-18] MEDS: AMIODARONE 200 MG TABLET PO SCH ×2 (10:29→21:57)
[2019-02-18] MEDS: ASCORBIC ACID 500 MG TABLET PO SCH ×2 (10:29→21:56)
[2019-02-18] MEDS: INSULIN GLARGINE 100 UNIT/ML SUBCUT SCH (10:29)
[2019-02-18] MEDS: SPIRONOLACTONE 50 MG TABLET PO SCH (10:29)
[2019-02-18] MEDS: PANTOPRAZOLE 40 MG TABLET PO SCH (10:29)
[2019-02-18] MEDS: CHLORHEXIDINE 0.12% ORAL RINSE 60 ML BOTTLE SWISH/SPIT SCH ×2 (10:30→21:57)
[2019-02-18] MEDS: CLOPIDOGREL 75 MG TABLET PO SCH (10:30)
[2019-02-18] MEDS: carvediloL 12.5 MG TABLET PO SCH ×2 (10:30→21:57)
[2019-02-18] MEDS: POTASSIUM CHLORIDE 20 MEQ TABLET PO SCH ×2 (10:30→21:57)
[2019-02-18] MEDS ORDERED: DILTIAZEM 50 MG/10 ML VIAL IV ONE (11:09)
[2019-02-18] MEDS ORDERED: DEXTROSE 50% 25 GM/50 ML VIAL IV PRN (11:15)
[2019-02-18] MEDS ORDERED: GLUCAGON 1 MG VIAL IM PRN (11:15)
[2019-02-18] MEDS: dilTIAZem Drip 125 MG/125 ML PREMIX IV SCH ×2 (11:23→20:22)
[2019-02-18] MEDS ORDERED: MAGNESIUM SULF RIDER 2 GM in PREMIX 1 EACH IV ONE (13:02)
[2019-02-18] MEDS ORDERED: POTASSIUM CHLORIDE 20 MEQ TABLET PO ONE (13:04)
[2019-02-18] MEDS: ASPIRIN CHEW 81 MG TABLET PO SCH (16:27)
[2019-02-18] MEDS: ATORVASTATIN 40 MG TABLET PO SCH (21:57)
[2019-02-18] MEDS: APIXABAN 5 MG TABLET PO SCH (21:57)
[2019-02-19] MEDS: ALBUTEROL/IPRATROPIUM 3 ML NEB RESP TX SCH ×7 (00:11→23:53)
[2019-02-19] MEDS: INSULIN REGULAR 100 UNIT/ML SUBCUT SCH ×7 (00:26→23:47)
[2019-02-19 07:12] LABS: Calcium 8.3 MG/DL (8.5-10.1); Osmolality,Calculated 275.8 MOS/KG (273-304)
[2019-02-19] MEDS: SPIRONOLACTONE 50 MG TABLET PO SCH (09:56)
[2019-02-19] MEDS: AMIODARONE 200 MG TABLET PO SCH ×2 (09:57→22:19)
[2019-02-19] MEDS: POTASSIUM CHLORIDE 20 MEQ TABLET PO SCH ×2 (09:57→22:20)
[2019-02-19] MEDS: carvediloL 12.5 MG TABLET PO SCH ×2 (09:58→22:20)
[2019-02-19] MEDS: ASCORBIC ACID 500 MG TABLET PO SCH ×2 (09:58→22:19)
[2019-02-19] MEDS: INSULIN GLARGINE 100 UNIT/ML SUBCUT SCH (09:58)
[2019-02-19] MEDS: ASPIRIN CHEW 81 MG TABLET PO SCH (09:58)
[2019-02-19] MEDS: APIXABAN 5 MG TABLET PO SCH ×2 (09:58→22:20)
[2019-02-19] MEDS: CHLORHEXIDINE 0.12% ORAL RINSE 60 ML BOTTLE SWISH/SPIT SCH ×2 (10:09→22:20)
[2019-02-19] MEDS: PANTOPRAZOLE 40 MG TABLET PO SCH (10:10)
[2019-02-19] MEDS ORDERED: SODIUM CHLORIDE 0.9% 1,000 ML IV SCH (11:00)
[2019-02-19] MEDS: MAGNESIUM SULF RIDER 4 GM in PREMIX 1 EACH IV PRN (12:02)
[2019-02-19] MEDS: dilTIAZem Drip 125 MG/125 ML PREMIX IV SCH (12:31)
[2019-02-19] MEDS ORDERED: GLYCOPYRROLATE 0.4 MG/2 ML VIAL IM ONE (15:00)
[2019-02-19] MEDS ORDERED: PROPOFOL 200 MG/20 ML VIAL IV ONE (15:20)
[2019-02-19] MEDS ORDERED: LIDOCAINE 2% 5 ML VIAL ONE (15:20)
[2019-02-19] MEDS ORDERED: ETOMIDATE 40 MG/20 ML VIAL IV ONE (15:21)
[2019-02-19] MEDS: ATORVASTATIN 40 MG TABLET PO SCH (22:20)
[2019-02-20] MEDS: ALBUTEROL/IPRATROPIUM 3 ML NEB RESP TX SCH ×6 (02:49→23:10)
[2019-02-20 05:10] LABS: Basophils # 0.1 10*3/uL (0.0-0.2); Basophils % 0.5 % (0.0-0.8); Eosinophils # 0.2 10*3/uL (0.0-0.87); Eosinophils % 1.1 % (0.00-10.9); Hemoglobin 10.7 GM/DL (14.0-18.0); Immature Granulocytes % 3.7 %; Immature Granulocytes Absolute 0.65 #; Lymphocytes # 1.6 10*3/uL (1.4-4.0); Lymphocytes % 9.2 % (21.2-54.2); Mean Corpuscular HGB Conc 31.5 GM/DL (32-36); Mean Corpuscular Volume 89.9 FL (87-102); Mean Platelet Volume 11.2 FL (9.6-12.0); Monocytes % 6.6 % (1.7-12.7); Neutrophils % 78.9 % (38.7-73.9); Platelet Count 287 T/CUMM (130-400); Red Blood Count 3.78 MC/CUMM (3.8-5.5); Red Cell Distribution Width 14.3 % (9.3-17.3); White Blood Count 17.5 T/CUMM (4-12)
[2019-02-20] MEDS ORDERED: fentaNYL 100 MCG/2 ML VIAL ONE (05:30)
[2019-02-20 05:31] LABS: Eosinophils 4 % (0-10); Hypochromasia 1+; Lymphocytes 8 % (20-55); Microcytosis Slight; Polychromasia Slight; Segmented Neutrophils 80 % (50-85); Total Cells Counted 100
[2019-02-20 05:32] LABS: Platelet Estimate Normal
[2019-02-20] MEDS: INSULIN REGULAR 100 UNIT/ML SUBCUT SCH ×5 (05:32→21:55)
[2019-02-20 05:46] LABS: Calcium 8.5 MG/DL (8.5-10.1); Osmolality,Calculated 264.7 MOS/KG (273-304)
[2019-02-20] MEDS: carvediloL 12.5 MG TABLET PO SCH ×2 (09:50→21:49)
[2019-02-20] MEDS: APIXABAN 5 MG TABLET PO SCH ×2 (09:50→21:49)
[2019-02-20] MEDS: POTASSIUM CHLORIDE 20 MEQ TABLET PO SCH ×2 (09:51→21:49)
[2019-02-20] MEDS: AMIODARONE 200 MG TABLET PO SCH ×2 (09:51→21:48)
[2019-02-20] MEDS: PANTOPRAZOLE 40 MG TABLET PO SCH (09:51)
[2019-02-20] MEDS: ASCORBIC ACID 500 MG TABLET PO SCH ×2 (09:51→21:50)
[2019-02-20] MEDS: SPIRONOLACTONE 50 MG TABLET PO SCH (09:51)
[2019-02-20] MEDS: INSULIN GLARGINE 100 UNIT/ML SUBCUT SCH (09:52)
[2019-02-20] MEDS: MAGNESIUM SULF RIDER 4 GM in PREMIX 1 EACH IV PRN (09:52)
[2019-02-20] MEDS: ASPIRIN CHEW 81 MG TABLET PO SCH (10:15)
[2019-02-20] MEDS: CHLORHEXIDINE 0.12% ORAL RINSE 60 ML BOTTLE SWISH/SPIT SCH ×2 (10:18→21:55)
[2019-02-20] MEDS: ATORVASTATIN 40 MG TABLET PO SCH (21:50)
[2019-02-21] MEDS: ALBUTEROL/IPRATROPIUM 3 ML NEB RESP TX SCH ×4 (03:20→16:10)
[2019-02-21 05:41] LABS: Basophils # 0.1 10*3/uL (0.0-0.2); Basophils % 0.4 % (0.0-0.8); Eosinophils # 0.1 10*3/uL (0.0-0.87); Eosinophils % 0.7 % (0.00-10.9); Hematocrit 33.4 VOL% (42.0-52.0); Hemoglobin 10.8 GM/DL (14.0-18.0); Immature Granulocytes % 3.8 %; Immature Granulocytes Absolute 0.48 #; Lymphocytes # 1.4 10*3/uL (1.4-4.0); Lymphocytes % 10.8 % (21.2-54.2); Mean Corpuscular HGB Conc 32.3 GM/DL (32-36); Mean Corpuscular Volume 88.4 FL (87-102); Mean Platelet Volume 10.8 FL (9.6-12.0); Monocytes % 7.1 % (1.7-12.7); Neutrophils % 77.2 % (38.7-73.9); Platelet Count 259 T/CUMM (130-400); Red Blood Count 3.78 MC/CUMM (3.8-5.5); Red Cell Distribution Width 14.4 % (9.3-17.3); White Blood Count 12.6 T/CUMM (4-12)
[2019-02-21 06:07] LABS: Calcium 8.6 MG/DL (8.5-10.1); Osmolality,Calculated 274.8 MOS/KG (273-304)
[2019-02-21] MEDS: POTASSIUM CHLORIDE 20 MEQ TABLET PO SCH (08:39)
[2019-02-21] MEDS: PANTOPRAZOLE 40 MG TABLET PO SCH (08:39)
[2019-02-21] MEDS: ASCORBIC ACID 500 MG TABLET PO SCH (08:39)
[2019-02-21] MEDS: AMIODARONE 200 MG TABLET PO SCH (08:40)
[2019-02-21] MEDS: ASPIRIN CHEW 81 MG TABLET PO SCH (08:40)
[2019-02-21] MEDS: INSULIN GLARGINE 100 UNIT/ML SUBCUT SCH (08:40)
[2019-02-21] MEDS: APIXABAN 5 MG TABLET PO SCH (08:40)
[2019-02-21] MEDS: SPIRONOLACTONE 50 MG TABLET PO SCH (08:40)
[2019-02-21] MEDS: INSULIN REGULAR 100 UNIT/ML SUBCUT SCH ×3 (08:40→16:41)
[2019-02-21] MEDS: carvediloL 12.5 MG TABLET PO SCH (08:40)
[2019-02-21] MEDS: CHLORHEXIDINE 0.12% ORAL RINSE 60 ML BOTTLE SWISH/SPIT SCH (08:46)
[2019-02-21 16:04] VITALS: BP 112/70
== END 2019-02-21 16:54 | disposition home health service (06) | DRG 233 ==
LOC: N.EDINP 17:32 → N.ED 17:32 → OBSVTOIN 20:54 → SUATTDRO 20:54 → N.TELES 21:06 → N.CVR 02-12 10:35 → N.ICU 02-13 13:59 → N.TELES 02-15 11:07
PROVIDERS: ADMIT Internal Medicine; ATTEND Internal Medicine